=== PATIENT | female | born 1970 | race Asian ===

== ENCOUNTER 2019-01-13 00:56 | Emergency (ER) | payer OTHER ==
[~2019-01-13] VITALS: Ht 144.8 cm; Wt 61.2 kg
[2019-01-13 01:02] VITALS: Ht 144.8 cm; Wt 61.2 kg
[2019-01-13 01:43] LABS: CALCIUM 7.9 mg/dL (8.5-10.1); CARBON DIOXIDE 28.4 mmol/L (21-32); CHLORIDE SERUM 108 mmol/L (98-107); GFR1 > 60 mL/min; GLUCOSE SERUM 94 mg/dL (74-106); POTASSIUM SERUM 4.2 mmol/L (3.5-5.1); SODIUM SERUM 142 mmol/L (136-145)
[2019-01-13 01:48] LABS: ALKALINE PHOSPHATASE 76 U/L (46-116); ALT/SGPT 19 U/L (14-59); AST/SGOT 16 U/L (15-37); BILIRUBIN TOTAL 0.22 mg/dL (0.20-1.00); TOTAL PROTEIN, SERUM 6.8 g/dL (6.4-8.2)
[2019-01-13 01:52] LABS: ALBUMIN 2.7 g/dL (3.4-5.0)
[2019-01-13 01:59] LABS: BASOPHIL % 0.7 % (0-2)
[2019-01-13 02:10] LABS: PLATELET COUNT 470 x10^3mcL (130-400); RED CELL DISTRIBUTION WIDTH 19.1 % (11.5-14.5)
[2019-01-13 02:57] VITALS: BP 114/59
== END 2019-01-13 02:34 | disposition home or self-care (01) ==
LOC: ED 00:56
PROVIDERS: Emergency Medicine
DX: R55 Syncope and collapse (principal); D46.9 Myelodysplastic syndrome, unspecified; M79.605 Pain in left leg; Z90.89 Acquired absence of other organs
CPT/HCPCS: 36415